=== PATIENT | male | born 1970 | race Caucasian/White ===

== ENCOUNTER → 2022-12-16 | Day surgery (SDC) | payer BC ==
[~2022-12-16] MED LIST: ACETAMINOPHEN-1 EAC4 PO; ASPIRIN81 MG PO; BUPIVACAINE HCL 0.5% 10ML MPF VIAL INJ ONE; DEXAMETHASONE SOD PHOS INJ 4 MG/ML SDV ONE; FENTANYL CITRATE/PF 100MCG/2 ML INJ ONE; HYGROTON25 MG PO; LACTATED RINGER'S 1,000 ML ONE; LIDOCAINE HCL 2% LOCAL INJ 5 ML SDV VIAL INJ ONE; MIDAZOLAM HCL 2 MG/2 ML VIAL ONE; MUPIROCIN 2% OINT 22 GM TUBE ONE; ONDANSETRON HCL INJ 2MG/ML 2ML 2 MG/ML VIAL ONE; POTASSIUM99 M1; POVIDONE IODINE 0.05% 0.05 % ML PO ONE; PROPOFOL IV EMULSION 10 MG/ML 20 ML VIAL ONE; SIMVASTATIN20 MG PO; TESTOSTERONE5 GM; VITAMIN D
[2022-12-16 08:16] VITALS: BP 110/84; PULSE 85; RESP 16; O2SAT 94
== END | disposition home or self-care (01) ==
LOC: EDSTATUS 07:30 → OR 07:44
PROVIDERS: ATTEND Plastic Surgery
DX: M65.312 Trigger thumb, left thumb (principal); I25.10 Atherosclerotic heart disease of native coronary artery without angina pectoris; I10 Essential (primary) hypertension; Z98.61 Coronary angioplasty status; K21.9 Gastro-esophageal reflux disease without esophagitis; N20.0 Calculus of kidney; F17.210 Nicotine dependence, cigarettes, uncomplicated; Z01.810 Encounter for preprocedural cardiovascular examination; Z79.82 Long term (current) use of aspirin; Z79.899 Other long term (current) drug therapy
CPT/HCPCS: 26055; 93005; J0690; J1100; J2001; J2250; J2405; J2704; J3010; J7121